=== PATIENT | male | born 1960 | race Two or more races ===

== ENCOUNTER 2017-09-26 07:41 | Inpatient (IN) | payer MEDICARE, BC, OTHER ==
[2017-09-26] MEDS: ACETAMINOPHEN 325 MG TAB PO ×2 (09:16→17:37)
[2017-09-26 09:27] LABS: WHITE BLOOD COUNT 28.5 10^3/ul (4.8-10.8)
[2017-09-26 09:27] LABS: ABNORMAL IP MESSAGE 1; HEMATOCRIT 28.7 % (42.0-52.0); HEMOGLOBIN 9.3 g/dl (14.0-18.0); MEAN CORPUSCULAR HEMOGLOBIN 33.3 pg (29.0-33.0); MEAN CORPUSCULAR HGB CONC 32.4 g/dl (32.0-37.0); MEAN CORPUSCULAR VOLUME 102.9 fl (82.0-101.0); MEAN PLATELET VOLUME 10.6 fl (7.4-10.4); PLATELET COUNT 234 10^3/UL (140-415); POSITIVE DIFF @See below; RED BLOOD COUNT 2.79 10^6/ul (4.70-6.10); RED CELL DISTRIBUTION WIDTH 17.1 % (11.5-14.5)
[2017-09-26 09:28] LABS: ADD MAN DIFF? YES
[2017-09-26 09:49] LABS: ALANINE AMINOTRANSFERASE 35 IU/L (13-69); ALBUMIN 3.8 g/dl (3.3-4.9); ALBUMIN/GLOBULIN RATIO 1.15; ALKALINE PHOSPHATASE 119 IU/L (42-121); ANION GAP 17 (8-16); ASPARTATE AMINO TRANSFERASE 23 IU/L (15-46); BILIRUBIN,INDIRECT 0.1 mg/dl (0-1.1); BILIRUBIN,TOTAL 0.1 mg/dl (0.2-1.3); BLOOD UREA NITROGEN 31 mg/dl (7-20); CALCIUM 9.3 mg/dl (8.4-10.2); CARBON DIOXIDE 26 mmol/L (21-31); CHLORIDE 98 mmol/L (97-110); CREATININE 9.32 mg/dl (0.61-1.24); GLUCOSE 136 mg/dl (70-220); POTASSIUM 3.7 mmol/L (3.5-5.1); SODIUM 137 mmol/L (135-144); TOTAL PROTEIN 7.1 g/dl (6.1-8.1)
[2017-09-26 10:15] LABS: LACTIC ACID 1.9 mmol/L (0.5-2.0)
[2017-09-26 10:16] LABS: ANISOCYTOSIS 1+ (0-0); BAND NEUTROPHILS #M 0.2 10^3/ul (0.0-0.6); BAND NEUTROPHILS % (M) 1 % (0-4); LYMPHOCYTES #M 1.4 10^3/ul (0.8-2.9); LYMPHOCYTES % (M) 5 % (15-51); MONOCYTE #M 1.9 10^3/ul (0.3-0.9); MONOCYTES % (M) 7 % (0-11); PLATELET ESTIMATE NORMAL; POLYCHROMASIA 1+ (0-0); SEG NEUT #M 24.9 10^3/ul (1.7-7.5); SEGMENTED NEUTROPHILS (M) % 87 % (39-77); SMUDGE%M 3 % (0-0)
[2017-09-26] MEDS: BENZONATATE 100 MG CAP PO (10:27)
[2017-09-26] MEDS ORDERED: CEFEPIME 2GM/50 ML (PMX) 50 ML IVPB (10:55)
[2017-09-26 11:11] LABS: INR 1.18; PROTIME 15.2 Sec (11.9-14.9); PT RATIO 1.2
[2017-09-26 11:12] LABS: PARTIAL THROMBOPLASTIN TIME 32.4 Sec (25.0-35.0)
[2017-09-26 11:14] LABS: LACTIC ACID 1.4 mmol/L (0.5-2.0)
[2017-09-26] MEDS: PIPER-TAZO 3.375 GM IV (PMX) 50 ML IV (12:04)
[2017-09-26] MEDS ORDERED: ONDANSETRON 4 MG INJ IV (12:30)
[2017-09-26 14:11] LABS: LACTIC ACID 2.4 mmol/L (0.5-2.0)
[2017-09-26] MEDS: VANCOMYCIN 1 GM (PMX) 250 ML IVPB (14:20)
[2017-09-26 14:40] LABS: CHOLESTEROL 83 mg/dl (100-200)
[2017-09-26 14:40] LABS: CHOL/HDL RATIO 3.4 RATIO; HDL CHOLESTEROL 24 mg/dl (28-71); LDL CHOLESTEROL,CALCULATED 45 mg/dl; TRIGLYCERIDES 71 mg/dl (0-149)
[2017-09-26] MEDS ORDERED: VANCOMYCIN IV PER PHARMACY XX (18:00)
[2017-09-26] MEDS ORDERED: SEVELAMER CARBONATE 0.8 GM PKT PO (18:00)
[2017-09-26] MEDS: ONDANSETRON 4 MG INJ IV (19:41)
[2017-09-26] MEDS: hydrALAzine 20 MG INJ IV (19:41)
[2017-09-26] MEDS: HYDROCODONE/APAP (5/325) TAB PO (19:42)
[2017-09-26] MEDS: ALBUTEROL 0.083% (NEB) 2.5 MG/3 ML AMP HHN (21:20)
[2017-09-26] MEDS: CEFEPIME 1GM/50 ML (PMX) 50 ML IVPB (21:28)
[2017-09-26] MEDS: ATORVASTATIN 20 MG TAB PO (21:28)
[2017-09-26] MEDS: METOPROLOL 50 MG TAB PO (21:29)
[2017-09-26] MEDS: TAMSULOSIN (SR) 0.4 MG CAP PO (22:21)
[2017-09-27] MEDS: ALBUTEROL 0.083% (NEB) 2.5 MG/3 ML AMP HHN ×4 (02:00→20:00)
[2017-09-27] MEDS: HYDROCODONE/APAP (5/325) TAB PO ×3 (04:32→20:15)
[2017-09-27 05:50] LABS: ADD MAN DIFF? NO
[2017-09-27 05:58] LABS: BASOPHIL # 0.1 10^3/ul (0.0-0.1); BASOPHILS % 0.4 % (0.0-2.0); EOSINOPHILS # 0.3 10^3/ul (0.0-0.5); EOSINOPHILS % 1.2 % (0.0-7.0); HEMATOCRIT 28.7 % (42.0-52.0); HEMOGLOBIN 9.4 g/dl (14.0-18.0); LYMPHOCYTES # 0.9 10^3/ul (0.8-2.9); LYMPHOCYTES % 3.9 % (15.0-51.0); MEAN CORPUSCULAR HEMOGLOBIN 33.6 pg (29.0-33.0); MEAN CORPUSCULAR HGB CONC 32.8 g/dl (32.0-37.0); MEAN CORPUSCULAR VOLUME 102.5 fl (82.0-101.0); MEAN PLATELET VOLUME 10.5 fl (7.4-10.4); MONOCYTE # 1.1 10^3/ul (0.3-0.9); MONOCYTES % 4.9 % (0.0-11.0); NEUTROPHIL # 19.9 10^3/ul (1.6-7.5); NEUTROPHILS % 88.7 % (39.0-77.0); PLATELET COUNT 209 10^3/UL (140-415); RED CELL DISTRIBUTION WIDTH 17.4 % (11.5-14.5)
[2017-09-27 05:58] LABS: WHITE BLOOD COUNT 22.5 10^3/ul (4.8-10.8)
[2017-09-27 06:05] LABS: LACTIC ACID 1.8 mmol/L (0.5-2.0)
[2017-09-27] MEDS: PANTOPRAZOLE (EC) 40 MG TAB PO (06:10)
[2017-09-27] MEDS: hydrALAzine 20 MG INJ IV ×2 (06:14→17:45)
[2017-09-27 06:18] LABS: ANION GAP 21 (8-16); BLOOD UREA NITROGEN 38 mg/dl (7-20); CALCIUM 9.3 mg/dl (8.4-10.2); CARBON DIOXIDE 24 mmol/L (21-31); CHLORIDE 97 mmol/L (97-110); CREATININE 10.75 mg/dl (0.61-1.24); GLUCOSE 133 mg/dl (70-220); POTASSIUM 3.9 mmol/L (3.5-5.1); SODIUM 138 mmol/L (135-144)
[2017-09-27] MEDS: SEVELAMER CARBONATE 2.4 GM PKT PO ×3 (07:50→17:44)
[2017-09-27] MEDS: AMLODIPINE 10 MG TAB PO ×2 (09:00→16:14)
[2017-09-27] MEDS: GABAPENTIN 300 MG CAP PO (09:32)
[2017-09-27] MEDS: METOPROLOL 50 MG TAB PO ×2 (09:34→20:18)
[2017-09-27] MEDS: TAMSULOSIN (SR) 0.4 MG CAP PO ×2 (20:13→21:00)
[2017-09-27] MEDS: ACETAMINOPHEN 325 MG TAB PO (20:14)
[2017-09-27] MEDS: CEFEPIME 1GM/50 ML (PMX) 50 ML IVPB (20:15)
[2017-09-27] MEDS: ATORVASTATIN 20 MG TAB PO (21:00)
[2017-09-28] MEDS: ZOLPIDEM 5 MG TAB PO (01:23)
[2017-09-28] MEDS: ALBUTEROL 0.083% (NEB) 2.5 MG/3 ML AMP HHN ×4 (02:00→20:43)
[2017-09-28 06:20] LABS: ADD MAN DIFF? NO
[2017-09-28 06:25] LABS: ABNORMAL IP MESSAGE 1; BASOPHIL # 0.1 10^3/ul (0.0-0.1); BASOPHILS % 0.5 % (0.0-2.0); EOSINOPHILS # 0.8 10^3/ul (0.0-0.5); EOSINOPHILS % 5.4 % (0.0-7.0); HEMATOCRIT 25.4 % (42.0-52.0); HEMOGLOBIN 8.2 g/dl (14.0-18.0); LYMPHOCYTES # 1.2 10^3/ul (0.8-2.9); LYMPHOCYTES % 7.9 % (15.0-51.0); MEAN CORPUSCULAR HEMOGLOBIN 32.7 pg (29.0-33.0); MEAN CORPUSCULAR HGB CONC 32.3 g/dl (32.0-37.0); MEAN CORPUSCULAR VOLUME 101.2 fl (82.0-101.0); MEAN PLATELET VOLUME 10.4 fl (7.4-10.4); MONOCYTE # 1.9 10^3/ul (0.3-0.9); MONOCYTES % 12.1 % (0.0-11.0); NEUTROPHIL # 11.4 10^3/ul (1.6-7.5); NEUTROPHILS % 73.4 % (39.0-77.0); PLATELET COUNT 189 10^3/UL (140-415); POSITIVE DIFF @See below; RED BLOOD COUNT 2.51 10^6/ul (4.70-6.10); RED CELL DISTRIBUTION WIDTH 17.1 % (11.5-14.5)
[2017-09-28 06:25] LABS: WHITE BLOOD COUNT 15.5 10^3/ul (4.8-10.8)
[2017-09-28] MEDS: PANTOPRAZOLE (EC) 40 MG TAB PO (07:04)
[2017-09-28 07:14] LABS: ANION GAP 16 (8-16); BLOOD UREA NITROGEN 25 mg/dl (7-20); CALCIUM 8.6 mg/dl (8.4-10.2); CARBON DIOXIDE 31 mmol/L (21-31); CHLORIDE 94 mmol/L (97-110); CREATININE 7.99 mg/dl (0.61-1.24); GLUCOSE 102 mg/dl (70-220); POTASSIUM 3.4 mmol/L (3.5-5.1); SODIUM 138 mmol/L (135-144)
[2017-09-28 07:25] LABS: VANCOMYCIN,RANDOM 11.4 ug/ml
[2017-09-28] MEDS: SEVELAMER CARBONATE 2.4 GM PKT PO ×3 (08:19→17:47)
[2017-09-28] MEDS: GABAPENTIN 300 MG CAP PO (08:19)
[2017-09-28] MEDS: METOPROLOL 50 MG TAB PO ×2 (08:20→22:28)
[2017-09-28] MEDS: LEVOFLOXACIN 250 MG TAB PO (17:48)
[2017-09-28] MEDS ORDERED: VANCOMYCIN 750 MG in DEXTROSE 5% 150 ML IVPB (18:00)
[2017-09-28] MEDS: TAMSULOSIN (SR) 0.4 MG CAP PO (21:00)
[2017-09-28] MEDS: ATORVASTATIN 20 MG TAB PO (21:00)
[2017-09-28] MEDS: metroNIDAZOLE 500 MG TAB PO (22:27)
[2017-09-29] MEDS: ALBUTEROL 0.083% (NEB) 2.5 MG/3 ML AMP HHN ×4 (02:16→21:05)
[2017-09-29 06:27] LABS: ADD MAN DIFF? NO
[2017-09-29 06:33] LABS: WHITE BLOOD COUNT 13.4 10^3/ul (4.8-10.8)
[2017-09-29 06:33] LABS: ABNORMAL IP MESSAGE 1; BASOPHIL # 0.1 10^3/ul (0.0-0.1); BASOPHILS % 0.4 % (0.0-2.0); EOSINOPHILS # 0.7 10^3/ul (0.0-0.5); EOSINOPHILS % 5.1 % (0.0-7.0); HEMATOCRIT 25.8 % (42.0-52.0); HEMOGLOBIN 8.6 g/dl (14.0-18.0); LYMPHOCYTES # 1.1 10^3/ul (0.8-2.9); LYMPHOCYTES % 8.1 % (15.0-51.0); MEAN CORPUSCULAR HEMOGLOBIN 33.3 pg (29.0-33.0); MEAN CORPUSCULAR HGB CONC 33.3 g/dl (32.0-37.0); MEAN PLATELET VOLUME 10.3 fl (7.4-10.4); MONOCYTE # 1.5 10^3/ul (0.3-0.9); MONOCYTES % 11.4 % (0.0-11.0); NEUTROPHILS % 74.3 % (39.0-77.0); PLATELET COUNT 197 10^3/UL (140-415); POSITIVE DIFF @See below; RED BLOOD COUNT 2.58 10^6/ul (4.70-6.10); RED CELL DISTRIBUTION WIDTH 16.7 % (11.5-14.5)
[2017-09-29] MEDS: metroNIDAZOLE 500 MG TAB PO ×3 (06:47→20:49)
[2017-09-29] MEDS: PANTOPRAZOLE (EC) 40 MG TAB PO (06:47)
[2017-09-29] MEDS: HYDROCODONE/APAP (5/325) TAB PO ×2 (06:49→20:58)
[2017-09-29 07:02] LABS: ANION GAP 18 (8-16); BLOOD UREA NITROGEN 36 mg/dl (7-20); CALCIUM 8.6 mg/dl (8.4-10.2); CARBON DIOXIDE 25 mmol/L (21-31); CHLORIDE 97 mmol/L (97-110); CREATININE 9.65 mg/dl (0.61-1.24); GLUCOSE 86 mg/dl (70-220); SODIUM 136 mmol/L (135-144)
[2017-09-29] MEDS: SEVELAMER CARBONATE 2.4 GM PKT PO ×3 (08:24→18:04)
[2017-09-29] MEDS: GABAPENTIN 300 MG CAP PO (08:24)
[2017-09-29] MEDS: METOPROLOL 50 MG TAB PO ×2 (09:00→20:50)
[2017-09-29] MEDS: AMLODIPINE 10 MG TAB PO ×2 (09:00→14:30)
[2017-09-29] MEDS: ATORVASTATIN 20 MG TAB PO (20:49)
[2017-09-29] MEDS: TAMSULOSIN (SR) 0.4 MG CAP PO (20:50)
[2017-09-29] MEDS: ZOLPIDEM 5 MG TAB PO (22:29)
[2017-09-30] MEDS: ALBUTEROL 0.083% (NEB) 2.5 MG/3 ML AMP HHN ×4 (02:00→20:48)
[2017-09-30 05:09] LABS: ADD MAN DIFF? NO
[2017-09-30 05:10] LABS: WHITE BLOOD COUNT 12.7 10^3/ul (4.8-10.8)
[2017-09-30 05:10] LABS: ABNORMAL IP MESSAGE 1; BASOPHIL # 0.1 10^3/ul (0.0-0.1); BASOPHILS % 0.7 % (0.0-2.0); EOSINOPHILS # 1.2 10^3/ul (0.0-0.5); EOSINOPHILS % 9.5 % (0.0-7.0); HEMATOCRIT 27.3 % (42.0-52.0); HEMOGLOBIN 8.9 g/dl (14.0-18.0); LYMPHOCYTES # 1.3 10^3/ul (0.8-2.9); LYMPHOCYTES % 10.3 % (15.0-51.0); MEAN CORPUSCULAR HGB CONC 32.6 g/dl (32.0-37.0); MEAN CORPUSCULAR VOLUME 101.1 fl (82.0-101.0); MEAN PLATELET VOLUME 9.7 fl (7.4-10.4); MONOCYTE # 1.9 10^3/ul (0.3-0.9); NEUTROPHIL # 8.1 10^3/ul (1.6-7.5); NEUTROPHILS % 63.7 % (39.0-77.0); PLATELET COUNT 177 10^3/UL (140-415); POSITIVE DIFF @See below; RED CELL DISTRIBUTION WIDTH 16.9 % (11.5-14.5)
[2017-09-30 05:36] LABS: ALANINE AMINOTRANSFERASE 31 IU/L (13-69); ALBUMIN 2.9 g/dl (3.3-4.9); ALBUMIN/GLOBULIN RATIO 0.96; ALKALINE PHOSPHATASE 90 IU/L (42-121); ANION GAP 15 (8-16); ASPARTATE AMINO TRANSFERASE 14 IU/L (15-46); BILIRUBIN,INDIRECT 0.1 mg/dl (0-1.1); BILIRUBIN,TOTAL 0.1 mg/dl (0.2-1.3); BLOOD UREA NITROGEN 19 mg/dl (7-20); CALCIUM 8.9 mg/dl (8.4-10.2); CARBON DIOXIDE 30 mmol/L (21-31); CHLORIDE 98 mmol/L (97-110); CREATININE 7.01 mg/dl (0.61-1.24); GLUCOSE 89 mg/dl (70-220); POTASSIUM 3.9 mmol/L (3.5-5.1); SODIUM 139 mmol/L (135-144); TOTAL PROTEIN 5.9 g/dl (6.1-8.1)
[2017-09-30] MEDS: metroNIDAZOLE 500 MG TAB PO ×3 (05:58→21:16)
[2017-09-30] MEDS: PANTOPRAZOLE (EC) 40 MG TAB PO (05:59)
[2017-09-30] MEDS: HYDROCODONE/APAP (5/325) TAB PO ×3 (06:01→21:22)
[2017-09-30] MEDS: SEVELAMER CARBONATE 2.4 GM PKT PO ×3 (09:07→18:22)
[2017-09-30] MEDS: GABAPENTIN 300 MG CAP PO (09:07)
[2017-09-30] MEDS: METOPROLOL 50 MG TAB PO ×2 (09:08→21:15)
[2017-09-30] MEDS: AMLODIPINE 10 MG TAB PO (09:08)
[2017-09-30] MEDS: LEVOFLOXACIN 250 MG TAB PO (16:27)
[2017-09-30] MEDS: DIPHENHYDRAMINE 50 MG CAP PO (16:31)
[2017-09-30] MEDS: ONDANSETRON 4 MG INJ IV (18:26)
[2017-09-30] MEDS: ATORVASTATIN 20 MG TAB PO (21:14)
[2017-09-30] MEDS: TAMSULOSIN (SR) 0.4 MG CAP PO (21:16)
[2017-10-01] MEDS: ALBUTEROL 0.083% (NEB) 2.5 MG/3 ML AMP HHN ×4 (02:00→19:07)
[2017-10-01] MEDS: morphine 2 MG INJ IV ×2 (02:31→07:52)
[2017-10-01] MEDS ORDERED: ALBUTEROL 0.083% (NEB) 2.5 MG/3 ML AMP HHN (03:30)
[2017-10-01 05:20] LABS: ADD MAN DIFF? NO
[2017-10-01 05:26] LABS: ABNORMAL IP MESSAGE 1; BASOPHIL # 0.1 10^3/ul (0.0-0.1); BASOPHILS % 0.6 % (0.0-2.0); EOSINOPHILS # 1.2 10^3/ul (0.0-0.5); EOSINOPHILS % 5.4 % (0.0-7.0); HEMATOCRIT 29.1 % (42.0-52.0); HEMOGLOBIN 9.4 g/dl (14.0-18.0); LYMPHOCYTES # 1.6 10^3/ul (0.8-2.9); LYMPHOCYTES % 7.4 % (15.0-51.0); MEAN CORPUSCULAR HEMOGLOBIN 32.5 pg (29.0-33.0); MEAN CORPUSCULAR HGB CONC 32.3 g/dl (32.0-37.0); MEAN CORPUSCULAR VOLUME 100.7 fl (82.0-101.0); MEAN PLATELET VOLUME 10.1 fl (7.4-10.4); MONOCYTE # 2.1 10^3/ul (0.3-0.9); MONOCYTES % 9.8 % (0.0-11.0); NEUTROPHIL # 16.4 10^3/ul (1.6-7.5); NEUTROPHILS % 76.2 % (39.0-77.0); PLATELET COUNT 202 10^3/UL (140-415); POSITIVE DIFF @See below; RED BLOOD COUNT 2.89 10^6/ul (4.70-6.10); RED CELL DISTRIBUTION WIDTH 16.6 % (11.5-14.5)
[2017-10-01 05:26] LABS: WHITE BLOOD COUNT 21.6 10^3/ul (4.8-10.8)
[2017-10-01 06:06] LABS: ANION GAP 17 (8-16); BLOOD UREA NITROGEN 28 mg/dl (7-20); CALCIUM 9.7 mg/dl (8.4-10.2); CARBON DIOXIDE 29 mmol/L (21-31); CHLORIDE 94 mmol/L (97-110); CREATININE 9.03 mg/dl (0.61-1.24); GLUCOSE 89 mg/dl (70-220); POTASSIUM 4.6 mmol/L (3.5-5.1); SODIUM 135 mmol/L (135-144)
[2017-10-01] MEDS: ONDANSETRON 4 MG INJ IV ×2 (07:27→19:44)
[2017-10-01] MEDS: metroNIDAZOLE 500 MG TAB PO ×3 (07:58→21:36)
[2017-10-01] MEDS: PANTOPRAZOLE (EC) 40 MG TAB PO (07:58)
[2017-10-01] MEDS: SEVELAMER CARBONATE 2.4 GM PKT PO ×3 (07:58→17:13)
[2017-10-01] MEDS: ACETAMINOPHEN 325 MG TAB PO (07:58)
[2017-10-01] MEDS: METOPROLOL 50 MG TAB PO ×2 (08:22→21:36)
[2017-10-01] MEDS: GABAPENTIN 300 MG CAP PO (08:22)
[2017-10-01] MEDS: AMLODIPINE 10 MG TAB PO (08:22)
[2017-10-01] MEDS: TAMSULOSIN (SR) 0.4 MG CAP PO (21:36)
[2017-10-01] MEDS: ATORVASTATIN 20 MG TAB PO (21:36)
[2017-10-01] MEDS: HYDROCODONE/APAP (5/325) TAB PO (21:37)
[2017-10-02] MEDS: ALBUTEROL 0.083% (NEB) 2.5 MG/3 ML AMP HHN ×4 (02:00→20:32)
[2017-10-02 05:24] LABS: ADD MAN DIFF? NO
[2017-10-02 05:26] LABS: WHITE BLOOD COUNT 15.9 10^3/ul (4.8-10.8)
[2017-10-02 05:26] LABS: HEMATOCRIT 27.6 % (42.0-52.0); MEAN CORPUSCULAR HEMOGLOBIN 32.8 pg (29.0-33.0); MEAN CORPUSCULAR HGB CONC 32.6 g/dl (32.0-37.0); MEAN CORPUSCULAR VOLUME 100.7 fl (82.0-101.0); PLATELET COUNT 170 10^3/UL (140-415); RED BLOOD COUNT 2.74 10^6/ul (4.70-6.10); RED CELL DISTRIBUTION WIDTH 16.3 % (11.5-14.5)
[2017-10-02 05:27] LABS: ABNORMAL IP MESSAGE 1; BASOPHIL # 0.1 10^3/ul (0.0-0.1); BASOPHILS % 0.6 % (0.0-2.0); EOSINOPHILS # 0.9 10^3/ul (0.0-0.5); EOSINOPHILS % 5.8 % (0.0-7.0); LYMPHOCYTES # 1.6 10^3/ul (0.8-2.9); LYMPHOCYTES % 9.9 % (15.0-51.0); MEAN PLATELET VOLUME 10.2 fl (7.4-10.4); MONOCYTE # 2.4 10^3/ul (0.3-0.9); MONOCYTES % 14.8 % (0.0-11.0); NEUTROPHIL # 10.8 10^3/ul (1.6-7.5); NEUTROPHILS % 68.1 % (39.0-77.0); POSITIVE DIFF @See below
[2017-10-02] MEDS: metroNIDAZOLE 500 MG TAB PO ×3 (06:00→23:00)
[2017-10-02] MEDS: PANTOPRAZOLE (EC) 40 MG TAB PO (06:00)
[2017-10-02 06:02] LABS: ANION GAP 17 (8-16); BLOOD UREA NITROGEN 20 mg/dl (7-20); CALCIUM 9.2 mg/dl (8.4-10.2); CARBON DIOXIDE 30 mmol/L (21-31); CHLORIDE 95 mmol/L (97-110); CREATININE 6.67 mg/dl (0.61-1.24); GLUCOSE 92 mg/dl (70-220); POTASSIUM 3.7 mmol/L (3.5-5.1); SODIUM 138 mmol/L (135-144)
[2017-10-02] MEDS: SEVELAMER CARBONATE 2.4 GM PKT PO ×3 (08:12→17:44)
[2017-10-02] MEDS: GABAPENTIN 300 MG CAP PO ×2 (08:13→08:52)
[2017-10-02] MEDS: HYDROCODONE/APAP (5/325) TAB PO ×2 (08:13→20:12)
[2017-10-02] MEDS: METOPROLOL 50 MG TAB PO ×2 (08:14→20:10)
[2017-10-02] MEDS: AMLODIPINE 10 MG TAB PO (08:14)
[2017-10-02] MEDS: SOD CHLORIDE 0.9% 1,000 ML IV ×2 (12:06→22:00)
[2017-10-02] MEDS: LEVOFLOXACIN 250 MG TAB PO (15:55)
[2017-10-02] MEDS: ONDANSETRON 4 MG INJ IV (17:44)
[2017-10-02] MEDS: TAMSULOSIN (SR) 0.4 MG CAP PO (20:10)
[2017-10-02] MEDS: ATORVASTATIN 20 MG TAB PO ×2 (20:11→20:23)
[2017-10-02] MEDS: ZOLPIDEM 5 MG TAB PO (21:28)
[2017-10-03] MEDS: ALBUTEROL 0.083% (NEB) 2.5 MG/3 ML AMP HHN ×4 (02:00→20:36)
[2017-10-03] MEDS: PANTOPRAZOLE (EC) 40 MG TAB PO (05:40)
[2017-10-03] MEDS: metroNIDAZOLE 500 MG TAB PO ×3 (05:40→21:26)
[2017-10-03] MEDS: SOD CHLORIDE 0.9% 1,000 ML IV (08:00)
[2017-10-03] MEDS: AMLODIPINE 10 MG TAB PO (08:33)
[2017-10-03] MEDS: SEVELAMER CARBONATE 2.4 GM PKT PO ×3 (08:33→17:22)
[2017-10-03] MEDS: GABAPENTIN 300 MG CAP PO (08:33)
[2017-10-03] MEDS: METOPROLOL 50 MG TAB PO ×2 (08:33→20:10)
[2017-10-03] MEDS: AL HYDROX/MG HYDROX/SIMETH 30 ML CUP PO (09:07)
[2017-10-03] MEDS: TAMSULOSIN (SR) 0.4 MG CAP PO (20:07)
[2017-10-03] MEDS: ATORVASTATIN 20 MG TAB PO (20:08)
[2017-10-03] MEDS: ZOLPIDEM 5 MG TAB PO (21:26)
[2017-10-04] MEDS: ALBUTEROL 0.083% (NEB) 2.5 MG/3 ML AMP HHN ×4 (02:00→19:50)
[2017-10-04] MEDS: PANTOPRAZOLE (EC) 40 MG TAB PO (06:36)
[2017-10-04] MEDS: metroNIDAZOLE 500 MG TAB PO ×3 (06:36→22:08)
[2017-10-04] MEDS: MEGESTROL (40 MG/ML) 10ML CUP PO (09:45)
[2017-10-04] MEDS: GABAPENTIN 300 MG CAP PO (09:45)
[2017-10-04] MEDS: SEVELAMER CARBONATE 2.4 GM PKT PO ×3 (09:45→16:58)
[2017-10-04] MEDS: METOPROLOL 50 MG TAB PO ×2 (11:01→22:08)
[2017-10-04] MEDS: AMLODIPINE 10 MG TAB PO (11:01)
[2017-10-04 11:08] LABS: ADD MAN DIFF? NO
[2017-10-04 11:12] LABS: WHITE BLOOD COUNT 9.3 10^3/ul (4.8-10.8)
[2017-10-04 11:12] LABS: BASOPHIL # 0.1 10^3/ul (0.0-0.1); BASOPHILS % 1.1 % (0.0-2.0); EOSINOPHILS # 0.9 10^3/ul (0.0-0.5); EOSINOPHILS % 9.3 % (0.0-7.0); LYMPHOCYTES # 1.3 10^3/ul (0.8-2.9); LYMPHOCYTES % 13.8 % (15.0-51.0); MEAN CORPUSCULAR HGB CONC 32.1 g/dl (32.0-37.0); MEAN CORPUSCULAR VOLUME 99.6 fl (82.0-101.0); MEAN PLATELET VOLUME 10.3 fl (7.4-10.4); MONOCYTE # 1.4 10^3/ul (0.3-0.9); MONOCYTES % 14.9 % (0.0-11.0); NEUTROPHIL # 5.6 10^3/ul (1.6-7.5); NEUTROPHILS % 60.3 % (39.0-77.0); PLATELET COUNT 180 10^3/UL (140-415); RED BLOOD COUNT 2.81 10^6/ul (4.70-6.10); RED CELL DISTRIBUTION WIDTH 15.9 % (11.5-14.5)
[2017-10-04 11:49] LABS: ANION GAP 15 (8-16); BLOOD UREA NITROGEN 27 mg/dl (7-20); CALCIUM 8.9 mg/dl (8.4-10.2); CARBON DIOXIDE 27 mmol/L (21-31); CHLORIDE 96 mmol/L (97-110); CREATININE 7.16 mg/dl (0.61-1.24); GLUCOSE 145 mg/dl (70-220); POTASSIUM 3.8 mmol/L (3.5-5.1); SODIUM 134 mmol/L (135-144)
[2017-10-04] MEDS: LEVOFLOXACIN 250 MG TAB PO (16:58)
[2017-10-04] MEDS: TAMSULOSIN (SR) 0.4 MG CAP PO (21:00)
[2017-10-04] MEDS: ATORVASTATIN 20 MG TAB PO (22:08)
[2017-10-05] MEDS: ALBUTEROL 0.083% (NEB) 2.5 MG/3 ML AMP HHN ×3 (01:17→14:09)
[2017-10-05] MEDS: metroNIDAZOLE 500 MG TAB PO (06:39)
[2017-10-05] MEDS: PANTOPRAZOLE (EC) 40 MG TAB PO (06:40)
[2017-10-05] MEDS: SEVELAMER CARBONATE 2.4 GM PKT PO ×3 (07:50→16:56)
[2017-10-05] MEDS: METOPROLOL 50 MG TAB PO (08:32)
[2017-10-05] MEDS: AMLODIPINE 10 MG TAB PO (08:33)
[2017-10-05] MEDS: GABAPENTIN 300 MG CAP PO (09:00)
[2017-10-05] MEDS: MEGESTROL (40 MG/ML) 10ML CUP PO (09:00)
[2017-10-05] MEDS: DIPHENHYDRAMINE 50 MG CAP PO (15:16)
== END 2017-10-05 18:11 | disposition home or self-care (01) | DRG 871 ==
LOC: MS1 09-27 06:11 → E/R 07:41 → MS3 12:25
PROC: 5A1D70Z Performance of Urinary Filtration, Intermittent, Less than 6 Hours Per Day (ICD-10-PCS; principal; 2017-09-27)
PROC: 5A1D70Z Performance of Urinary Filtration, Intermittent, Less than 6 Hours Per Day (ICD-10-PCS; 2017-09-29)
PROC: 5A1D70Z Performance of Urinary Filtration, Intermittent, Less than 6 Hours Per Day (ICD-10-PCS; 2017-10-01)
PROC: 5A1D70Z Performance of Urinary Filtration, Intermittent, Less than 6 Hours Per Day (ICD-10-PCS; 2017-10-03)
PROC: 5A1D70Z Performance of Urinary Filtration, Intermittent, Less than 6 Hours Per Day (ICD-10-PCS; 2017-10-05)
DX: A41.9 Sepsis, unspecified organism (principal); N18.6 End stage renal disease; I13.2 Hypertensive heart and chronic kidney disease with heart failure and with stage 5 chronic kidney disease, or end stage renal disease; I50.9 Heart failure, unspecified; K52.9 Noninfective gastroenteritis and colitis, unspecified; J20.9 Acute bronchitis, unspecified; K21.9 Gastro-esophageal reflux disease without esophagitis; E78.5 Hyperlipidemia, unspecified; Z99.2 Dependence on renal dialysis; D63.8 Anemia in other chronic diseases classified elsewhere; R63.0 Anorexia
CPT/HCPCS: 36415; 71010; 74176; 76536; 80048; 80053; 80061; 80202; 83605; 84484; 85025; 85610; 85730; 87040; 87045; 87075; 87400; 90935; 93005; 94640; 94664; 96374; 96375; 99291-25

== ENCOUNTER 2018-01-27 07:55 | Day surgery (SDC) | payer MEDICARE, OTHER, BC | END 2018-01-27 15:51 | disposition home or self-care (01) | LOC: GIL 07:55 | DX: R19.7 Diarrhea, unspecified (principal); Z53.9 Procedure and treatment not carried out, unspecified reason ==

== ENCOUNTER 2018-02-03 11:42 | Inpatient (IN) | payer MEDICARE, OTHER ==
[2018-02-03] MEDS: PANTOPRAZOLE 40 MG INJ IV ×2 (16:07→22:10)
[2018-02-03] MEDS: LIDOCAINE/MYLANTA 40 ML BTL PO (16:07)
[2018-02-03] MEDS: ONDANSETRON 4 MG INJ IV (16:07)
[2018-02-03] MEDS: HYDROmorphONE 1 MG/5 ML IV SYRINGE IV (16:08)
[2018-02-03] MEDS: BELLADONNA/PHENOBARBITAL TAB PO (16:08)
[2018-02-03 16:10] LABS: ADD MAN DIFF? NO
[2018-02-03 16:12] LABS: BASOPHIL # 0.1 10^3/ul (0.0-0.1); BASOPHILS % 1.4 % (0.0-2.0); EOSINOPHILS # 0.6 10^3/ul (0.0-0.5); EOSINOPHILS % 8.7 % (0.0-7.0); HEMATOCRIT 28.8 % (42.0-52.0); HEMOGLOBIN 9.4 g/dl (14.0-18.0); LYMPHOCYTES # 1.2 10^3/ul (0.8-2.9); MEAN CORPUSCULAR HEMOGLOBIN 35.5 pg (29.0-33.0); MEAN CORPUSCULAR HGB CONC 32.6 g/dl (32.0-37.0); MEAN CORPUSCULAR VOLUME 108.7 fl (82.0-101.0); MEAN PLATELET VOLUME 10.6 fl (7.4-10.4); MONOCYTE # 0.8 10^3/ul (0.3-0.9); MONOCYTES % 11.6 % (0.0-11.0); NEUTROPHIL # 3.9 10^3/ul (1.6-7.5); NEUTROPHILS % 59.8 % (39.0-77.0); PLATELET COUNT 150 10^3/UL (140-415); RED BLOOD COUNT 2.65 10^6/ul (4.70-6.10); RED CELL DISTRIBUTION WIDTH 15.6 % (11.5-14.5)
[2018-02-03 16:12] LABS: WHITE BLOOD COUNT 6.5 10^3/ul (4.8-10.8)
[2018-02-03 16:31] LABS: ALANINE AMINOTRANSFERASE 33 IU/L (13-69); ALBUMIN 3.8 g/dl (3.3-4.9); ALBUMIN/GLOBULIN RATIO 1.15; ALKALINE PHOSPHATASE 111 IU/L (42-121); ANION GAP 17 (8-16); ASPARTATE AMINO TRANSFERASE 22 IU/L (15-46); BILIRUBIN,INDIRECT 0.2 mg/dl (0-1.1); BILIRUBIN,TOTAL 0.2 mg/dl (0.2-1.3); BLOOD UREA NITROGEN 29 mg/dl (7-20); CALCIUM 9.8 mg/dl (8.4-10.2); CARBON DIOXIDE 29 mmol/L (21-31); CHLORIDE 99 mmol/L (97-110); CREATININE 7.66 mg/dl (0.61-1.24); GLUCOSE 109 mg/dl (70-220); LIPASE 339 U/L (23-300); POTASSIUM 4.6 mmol/L (3.5-5.1); SODIUM 140 mmol/L (135-144); TOTAL PROTEIN 7.1 g/dl (6.1-8.1)
[2018-02-03 16:34] LABS: INR 1.07; PT RATIO 1.1
[2018-02-03 16:45] LABS: TROPONIN-I < 0.012 ng/ml (0.00-0.12)
[2018-02-03] MEDS ORDERED: ONDANSETRON 4 MG INJ IV (19:00)
[2018-02-03] MEDS: DEXTROSE 5%-0.45% NACL 1,000 ML IV (21:11)
[2018-02-03] MEDS: TAMSULOSIN (SR) 0.4 MG CAP PO (22:10)
[2018-02-03] MEDS: SUCRALFATE 1 GM TAB PO (22:10)
[2018-02-03] MEDS: ZOLPIDEM 5 MG TAB PO (22:15)
[2018-02-04] MEDS: PANTOPRAZOLE 40 MG INJ IV ×2 (05:53→17:58)
[2018-02-04 07:27] LABS: ADD MAN DIFF? NO
[2018-02-04 07:29] LABS: BASOPHIL # 0.1 10^3/ul (0.0-0.1); BASOPHILS % 0.9 % (0.0-2.0); EOSINOPHILS # 0.4 10^3/ul (0.0-0.5); EOSINOPHILS % 6.8 % (0.0-7.0); HEMATOCRIT 26.2 % (42.0-52.0); HEMOGLOBIN 8.5 g/dl (14.0-18.0); LYMPHOCYTES % 16.1 % (15.0-51.0); MEAN CORPUSCULAR HEMOGLOBIN 34.7 pg (29.0-33.0); MEAN CORPUSCULAR HGB CONC 32.4 g/dl (32.0-37.0); MEAN CORPUSCULAR VOLUME 106.9 fl (82.0-101.0); MEAN PLATELET VOLUME 10.6 fl (7.4-10.4); MONOCYTE # 0.7 10^3/ul (0.3-0.9); MONOCYTES % 10.6 % (0.0-11.0); NEUTROPHIL # 4.2 10^3/ul (1.6-7.5); NEUTROPHILS % 65.1 % (39.0-77.0); PLATELET COUNT 132 10^3/UL (140-415); POSITIVE DIFF @See below; RED BLOOD COUNT 2.45 10^6/ul (4.70-6.10); RED CELL DISTRIBUTION WIDTH 15.4 % (11.5-14.5)
[2018-02-04 07:29] LABS: WHITE BLOOD COUNT 6.4 10^3/ul (4.8-10.8)
[2018-02-04 07:52] LABS: ANION GAP 17 (8-16); BLOOD UREA NITROGEN 38 mg/dl (7-20); CALCIUM 9.5 mg/dl (8.4-10.2); CARBON DIOXIDE 28 mmol/L (21-31); CHLORIDE 98 mmol/L (97-110); CREATININE 9.22 mg/dl (0.61-1.24); GLUCOSE 112 mg/dl (70-220); POTASSIUM 5.4 mmol/L (3.5-5.1); SODIUM 138 mmol/L (135-144)
[2018-02-04] MEDS: SUCRALFATE 1 GM TAB PO ×4 (08:10→22:00)
[2018-02-04] MEDS: SEVELAMER CARBONATE 2.4 GM PKT PO ×3 (08:10→17:58)
[2018-02-04] MEDS: CHOLESTYRAMINE 4 GM PACKET PO (09:03)
[2018-02-04 19:28] LABS: HEPATITIS B SURFACE ANTIGEN NEGATIVE (NEGATIVE)
[2018-02-04] MEDS: TAMSULOSIN (SR) 0.4 MG CAP PO (22:00)
[2018-02-04] MEDS: DEXTROSE 5%-0.45% NACL 1,000 ML IV (22:01)
[2018-02-04] MEDS: GABAPENTIN 300 MG CAP PO (22:01)
[2018-02-04] MEDS: EPOETIN 4000 UNITS/1 ML INJ (ESRD) SC (22:02)
[2018-02-05] MEDS: ZOLPIDEM 5 MG TAB PO (01:10)
[2018-02-05] MEDS: PANTOPRAZOLE 40 MG INJ IV ×2 (06:23→17:09)
[2018-02-05 08:06] LABS: ANION GAP 13 (8-16); BLOOD UREA NITROGEN 23 mg/dl (7-20); CALCIUM 9.1 mg/dl (8.4-10.2); CARBON DIOXIDE 30 mmol/L (21-31); CHLORIDE 98 mmol/L (97-110); CREATININE 6.36 mg/dl (0.61-1.24); GLUCOSE 93 mg/dl (70-220); POTASSIUM 4.3 mmol/L (3.5-5.1); SODIUM 137 mmol/L (135-144)
[2018-02-05 08:11] LABS: ALANINE AMINOTRANSFERASE 28 IU/L (13-69); ALBUMIN 3.4 g/dl (3.3-4.9); ALBUMIN/GLOBULIN RATIO 1.13; ALKALINE PHOSPHATASE 100 IU/L (42-121); ANION GAP 10 (8-16); ASPARTATE AMINO TRANSFERASE 19 IU/L (15-46); BILIRUBIN,INDIRECT 0.6 mg/dl (0-1.1); BILIRUBIN,TOTAL 0.6 mg/dl (0.2-1.3); BLOOD UREA NITROGEN 22 mg/dl (7-20); CALCIUM 9.1 mg/dl (8.4-10.2); CARBON DIOXIDE 32 mmol/L (21-31); CHLORIDE 99 mmol/L (97-110); CREATININE 6.64 mg/dl (0.61-1.24); GLUCOSE 94 mg/dl (70-220); LIPASE 313 U/L (23-300); POTASSIUM 4.2 mmol/L (3.5-5.1); SODIUM 137 mmol/L (135-144); TOTAL PROTEIN 6.4 g/dl (6.1-8.1)
[2018-02-05] MEDS: SUCRALFATE 1 GM TAB PO ×4 (08:13→21:48)
[2018-02-05] MEDS: GABAPENTIN 300 MG CAP PO (08:13)
[2018-02-05] MEDS: SEVELAMER CARBONATE 2.4 GM PKT PO ×3 (08:13→17:09)
[2018-02-05] MEDS: CHOLESTYRAMINE 4 GM PACKET PO (08:18)
[2018-02-05] MEDS: AMLODIPINE 5 MG TAB PO (12:52)
[2018-02-05] MEDS: TAMSULOSIN (SR) 0.4 MG CAP PO (21:48)
[2018-02-06] MEDS: PANTOPRAZOLE 40 MG INJ IV ×2 (05:43→18:25)
[2018-02-06] MEDS: GABAPENTIN 300 MG CAP PO (08:44)
[2018-02-06] MEDS: CHOLESTYRAMINE 4 GM PACKET PO (08:45)
[2018-02-06] MEDS: AMLODIPINE 5 MG TAB PO (08:45)
[2018-02-06] MEDS: SUCRALFATE 1 GM TAB PO ×4 (08:45→21:34)
[2018-02-06] MEDS: SEVELAMER CARBONATE 2.4 GM PKT PO ×3 (08:45→18:25)
[2018-02-06] MEDS ORDERED: BISACODYL 10 MG SUPP PR (11:30)
[2018-02-06] MEDS: DOCUSATE SODIUM 100 MG CAP PO (12:26)
[2018-02-06] MEDS ORDERED: ALBUMIN HUMAN 25% 50 ML IV (16:00)
[2018-02-06] MEDS ORDERED: SODIUM CHLORIDE 0.9% 1L BAG IV (16:00)
[2018-02-06] MEDS: TAMSULOSIN (SR) 0.4 MG CAP PO (21:34)
[2018-02-07] MEDS: ZOLPIDEM 5 MG TAB PO ×2 (03:10→23:15)
[2018-02-07] MEDS: PANTOPRAZOLE 40 MG INJ IV ×2 (06:12→18:13)
[2018-02-07] MEDS ORDERED: LIDOCAINE 2% (SDV) 5 ML INJ (07:00)
[2018-02-07] MEDS ORDERED: PROPOFOL 200 MG INJ (07:00)
[2018-02-07] MEDS: SUCRALFATE 1 GM TAB PO ×4 (07:30→20:28)
[2018-02-07 07:45] LABS: ADD MAN DIFF? NO
[2018-02-07 07:50] LABS: BASOPHIL # 0.1 10^3/ul (0.0-0.1); BASOPHILS % 0.8 % (0.0-2.0); EOSINOPHILS # 0.8 10^3/ul (0.0-0.5); EOSINOPHILS % 8.2 % (0.0-7.0); HEMATOCRIT 28.4 % (42.0-52.0); HEMOGLOBIN 9.5 g/dl (14.0-18.0); LYMPHOCYTES # 1.2 10^3/ul (0.8-2.9); LYMPHOCYTES % 13.5 % (15.0-51.0); MEAN CORPUSCULAR HEMOGLOBIN 35.2 pg (29.0-33.0); MEAN CORPUSCULAR HGB CONC 33.5 g/dl (32.0-37.0); MEAN CORPUSCULAR VOLUME 105.2 fl (82.0-101.0); MEAN PLATELET VOLUME 10.1 fl (7.4-10.4); MONOCYTE # 0.8 10^3/ul (0.3-0.9); MONOCYTES % 9.1 % (0.0-11.0); NEUTROPHIL # 6.2 10^3/ul (1.6-7.5); NEUTROPHILS % 68.1 % (39.0-77.0); PLATELET COUNT 156 10^3/UL (140-415); RED CELL DISTRIBUTION WIDTH 14.8 % (11.5-14.5)
[2018-02-07 07:50] LABS: WHITE BLOOD COUNT 9.1 10^3/ul (4.8-10.8)
[2018-02-07] MEDS: SEVELAMER CARBONATE 2.4 GM PKT PO ×3 (08:00→18:13)
[2018-02-07 08:08] LABS: ANION GAP 20 (8-16); BLOOD UREA NITROGEN 53 mg/dl (7-20); CALCIUM 9.9 mg/dl (8.4-10.2); CARBON DIOXIDE 23 mmol/L (21-31); CHLORIDE 103 mmol/L (97-110); CREATININE 11.19 mg/dl (0.61-1.24); GLUCOSE 98 mg/dl (70-220); POTASSIUM 4.9 mmol/L (3.5-5.1); SODIUM 141 mmol/L (135-144)
[2018-02-07] MEDS: AMLODIPINE 5 MG TAB PO (08:49)
[2018-02-07] MEDS: GABAPENTIN 300 MG CAP PO ×2 (08:49→15:22)
[2018-02-07] MEDS: CHOLESTYRAMINE 4 GM PACKET PO (08:50)
[2018-02-07] MEDS: FLUTICASONE 0.05% 16 GM NAS SPRAY NASAL (08:54)
[2018-02-07] MEDS: EPOETIN 4000 UNITS/1 ML INJ (ESRD) SC (17:07)
[2018-02-07] MEDS: TAMSULOSIN (SR) 0.4 MG CAP PO (20:28)
[2018-02-08] MEDS: SUCRALFATE 1 GM TAB PO ×3 (06:13→18:23)
[2018-02-08] MEDS: PANTOPRAZOLE 40 MG INJ IV ×2 (06:13→18:23)
[2018-02-08] MEDS: SEVELAMER CARBONATE 2.4 GM PKT PO ×3 (08:33→18:23)
[2018-02-08] MEDS: AMLODIPINE 5 MG TAB PO (09:00)
[2018-02-08] MEDS: FLUTICASONE 0.05% 16 GM NAS SPRAY NASAL (09:00)
[2018-02-08] MEDS: CHOLESTYRAMINE 4 GM PACKET PO (09:00)
[2018-02-08 09:53] LABS: ADD MAN DIFF? NO
[2018-02-08 09:57] LABS: WHITE BLOOD COUNT 7.1 10^3/ul (4.8-10.8)
[2018-02-08 09:58] LABS: BASOPHIL # 0.1 10^3/ul (0.0-0.1); EOSINOPHILS # 0.7 10^3/ul (0.0-0.5); HEMATOCRIT 29.8 % (42.0-52.0); HEMOGLOBIN 9.8 g/dl (14.0-18.0); LYMPHOCYTES # 1.2 10^3/ul (0.8-2.9); LYMPHOCYTES % 16.2 % (15.0-51.0); MEAN CORPUSCULAR HEMOGLOBIN 34.6 pg (29.0-33.0); MEAN CORPUSCULAR HGB CONC 32.9 g/dl (32.0-37.0); MEAN CORPUSCULAR VOLUME 105.3 fl (82.0-101.0); MEAN PLATELET VOLUME 9.8 fl (7.4-10.4); MONOCYTE # 0.9 10^3/ul (0.3-0.9); MONOCYTES % 12.3 % (0.0-11.0); NEUTROPHIL # 4.3 10^3/ul (1.6-7.5); NEUTROPHILS % 60.2 % (39.0-77.0); PLATELET COUNT 158 10^3/UL (140-415); RED BLOOD COUNT 2.83 10^6/ul (4.70-6.10); RED CELL DISTRIBUTION WIDTH 14.6 % (11.5-14.5)
[2018-02-08 10:29] LABS: ANION GAP 14 (8-16); BLOOD UREA NITROGEN 34 mg/dl (7-20); CALCIUM 10.1 mg/dl (8.4-10.2); CARBON DIOXIDE 29 mmol/L (21-31); CHLORIDE 102 mmol/L (97-110); CREATININE 7.68 mg/dl (0.61-1.24); GLUCOSE 91 mg/dl (70-220); POTASSIUM 4.8 mmol/L (3.5-5.1); SODIUM 140 mmol/L (135-144)
== END 2018-02-08 18:30 | disposition home or self-care (01) | DRG 391 ==
LOC: E/R 11:42 → MS4 17:46
PROC: 0DB98ZX Excision of Duodenum, Via Natural or Artificial Opening Endoscopic, Diagnostic (ICD-10-PCS; principal; 2018-02-07 11:45)
PROC: 0DB68ZX Excision of Stomach, Via Natural or Artificial Opening Endoscopic, Diagnostic (ICD-10-PCS; 2018-02-07 11:45)
PROC: 5A1D70Z Performance of Urinary Filtration, Intermittent, Less than 6 Hours Per Day (ICD-10-PCS; 2018-02-07 11:45)
DX: K29.70 Gastritis, unspecified, without bleeding (principal); N18.6 End stage renal disease; I13.2 Hypertensive heart and chronic kidney disease with heart failure and with stage 5 chronic kidney disease, or end stage renal disease; I50.9 Heart failure, unspecified; Z99.2 Dependence on renal dialysis; N40.0 Benign prostatic hyperplasia without lower urinary tract symptoms; E87.5 Hyperkalemia; E83.39 Other disorders of phosphorus metabolism; D63.1 Anemia in chronic kidney disease; K59.00 Constipation, unspecified; K31.7 Polyp of stomach and duodenum
CPT/HCPCS: 71045; 80048; 80053; 83690; 84484; 85025; 85610; 85730; 87340; 88305; 88312; 90935; 93005; 96374; 96375; 99285-25